=== PATIENT | female | born 2000 | race Caucasian/White ===

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

== ENCOUNTER 2023-02-08 18:00 | Outpatient (CLI) | payer BC | END 2023-02-08 18:01 | disposition home or self-care (01) | LOC: SLEEPLAB 18:00 | PROVIDERS: ATTEND Family Medicine | DX: G47.33 Obstructive sleep apnea (adult) (pediatric) (principal); G47.10 Hypersomnia, unspecified | CPT/HCPCS: 95800 ==

== ENCOUNTER 2023-07-07 15:13 | Outpatient (CLI) | payer BC | END 2023-07-07 15:14 | disposition home or self-care (01) | LOC: SCSRAD 15:13 | PROVIDERS: ATTEND Family Medicine | DX: S99.912A Unspecified injury of left ankle, initial encounter (principal) ==

== ENCOUNTER 2023-10-20 14:00 | Outpatient (CLI) | payer BC | END 2023-10-20 14:01 | disposition home or self-care (01) | LOC: SCSRAD 14:00 | PROVIDERS: ATTEND Family Medicine | DX: R10.30 Lower abdominal pain, unspecified (principal) | CPT/HCPCS: 74019 ==